=== PATIENT | male | born 1945 | race Caucasian/White ===

== ENCOUNTER 2020-08-16 17:28 | Emergency (ER) | payer MEDICARE, SELFPAY ==
--- NOTE | 2020-08-16 18:37 | ED.MALEGU ---
HPI - Male Genitourinary General Chief complaint: Urogenital-Male Stated complaint: problems with catheter Time Seen by Provider: 08/16/20 18:24 Source: patient Mode of arrival: ambulatory Limitations: no limitations History of Present Illness HPI Narrative: patient comes emergency room complaining of a Allen catheter blockage. Patient states he has had a chronic Allen since December of 2019 for BPH, Patient noticed that he was not passing any urine this morning, patient is then becoming more uncomfortable, was trying to wait until Monday to be seen by his urologist, however patient could not tolerate the abdominal pain any more. Related Data Allergies Allergy/AdvReac Type Severity Reaction Status Date / Time lisinopril [LISINOPRIL] Allergy Unknown UNKNOWN, Unverified 06/18/20 17:31 numbness Review of Systems Review of Systems: Constitutional : No Weight loss, No Fever, No Chills, No Night Sweats, No Fatigue, No Malaise ENT/Mouth : No Hearing loss, No Ear Pain, No Nasal Congestion, No Sinus Pain, No Hoarseness, No sore throat, No Rhinorrhea, No Swallowing Difficulty Eyes: No Eye Pain, No Swelling, No Redness, No Foreign Body, No Discharge, No Vision Changes Cardiovascular : No Chest Pain, No SOB, No Dyspnea on Exertion, No Orthopnea, No Edema, No Palpitations Respiratory : No Cough, No Sputum, No Wheezing, No Smoke Exposure, No Dyspnea Gastrointestinal : No Nausea, No Vomiting, No Diarrhea, No Constipation, Complaining of suprapubic abdominal pain from bladder distention, No Hematochezia, No Melena Genitourinary : patient complaining of blockage in his Allen catheter Musculoskeletal : No joint pain, No Myalgias, No Joint Swelling Skin : No Skin Lesions, No rash Neuro : No Weakness, No Numbness, No Paresthesias, No Loss of Consciousness, No Dizziness, No Headache Psych : No Anxiety/Panic, No Depression, No SI/HI/AH/VH, No Social Issues, Heme/Lymph: No Bruising, No Bleeding,No Lymphadenopathy Endocrine : No Polyuria, No Polydipsia, No Temperature Intolerance PMFSH Past Medical History Medical History (Updated 08/16/20 @ 19:16 by Meghana Mast MD) Asthma BPH (benign prostatic hyperplasia) COPD (chronic obstructive pulmonary disease) HTN (hypertension) MDD (major depressive disorder) Prostate CA Social History Social History Alcohol intake: never Smoking Status: Former smoker Smoked in Last 30 Days: No Use of substances other than those prescribed or required for medical reasons: No Advance Directives: No Advance Directives Information Provided: No Physical Exam Vital Signs: Vital Signs: Last Vital Signs Temp 98.6 F 08/16/20 18:43 Pulse 110 H 08/16/20 18:43 Resp 16 08/16/20 18:43 BP 127/67 08/16/20 18:43 Pulse Ox 97 08/16/20 18:43 Body Mass Index 25.4 Appearance: Alert. Oriented X3. No acute distress. Eyes: Pupils equal, round and reactive to light. ENT: Pharynx normal. Neck: Normal inspection. Neck supple. No lymph nodes noted. No crepitus CVS: Normal heart rate and rhythm. Pulses normal. Normal S1 and S2 Respiratory: No respiratory distress. Breath sounds normal. No Wheezing. No rales Abdomen: distended suprapubic area, palpable bladder, bedside bladder scan shows 622 mL urine : Allen catheter in place, looks dirty, blood clots coming from the urethral meatus Skin: Skin warm and dry. Normal skin color. Normal skin turgor. Extremities: No lower extremity edema. No lower extremity edema. No Lacerations. No Rash Neuro: Oriented X 3. No motor deficit. No sensory deficit. Moving all extermities. No slurred speech. Course Course Course Narrative: patient's Allen catheter was changed, patient drained 800 mL of urine. Patient has an appointment coming up next week On Monday with his urologist. Patient states that he feels much better, no longer having abdominal distention or pain. Of note, patient has been taking ciprofloxacin that he has had from a previous prescription, instructed to continue taking it until he finishes the course since he started. Patient states he ran this by his urologist and agreed that he should finish a course of antibiotics. Discharge Plan Discharge Clinical Impression: Complication, blocked Allen catheter Qualifiers: Encounter type: initial encounter Qualified Code(s): T83.091A - Other mechanical complication of indwelling urethral catheter, initial encounter Patient Disposition: Home, Self-Care Instructions: Allen Catheter Placement and Care (ED) Additional Instructions: please follow-up with your urologist on Monday. If you have any further issues with your Allen catheter, blockage, passing blood clots, please return to emergency room.
[2020-08-16 18:43] VITALS: BP 127/67; PULSE 110; RESP 16; TEMP 37; O2SAT 97; BMI 25.4
== END 2020-08-16 20:14 | disposition home or self-care (01) ==
PROVIDERS: Emergency Provider Emergency Medicine; PCP Family Medicine
DX: T83.098A Other mechanical complication of other urinary catheter, initial encounter (principal); I10 Essential (primary) hypertension; N40.0 Benign prostatic hyperplasia without lower urinary tract symptoms; X58.XXXA Exposure to other specified factors, initial encounter; Z79.899 Other long term (current) drug therapy; Z87.891 Personal history of nicotine dependence
CPT/HCPCS: 99284

== ENCOUNTER 2020-10-16 10:28 | Outpatient (REF) | payer MEDICARE, SELFPAY ==
[2020-10-16 15:01] LABS: Prostate Specific Antigen 12.76 ng/mL (<0.05-4.0)
== END 2020-10-16 10:29 | disposition home or self-care (01) ==
LOC: HO.HMGCLDS 10:28
PROVIDERS: PCP Family Medicine; Visit Provider Urology
DX: C61 Malignant neoplasm of prostate (principal); Z12.5 Encounter for screening for malignant neoplasm of prostate
CPT/HCPCS: 36415; 84153

== ENCOUNTER 2020-11-06 23:02 | Emergency (ER) | payer MEDICARE, SELFPAY ==
[2020-11-07 00:37] VITALS: BP 135/68; PULSE 78; RESP 16; TEMP 36.8; O2SAT 97; BMI 25.0
[2020-11-07 01:13] VITALS: BP 130/56; PULSE 91; RESP 16; TEMP 36.4; O2SAT 95
--- NOTE | 2020-11-07 01:13 | ED.MALEGU ---
HPI - Male Genitourinary General Chief complaint: Urogenital-Male Stated complaint: Blocked catheter Time Seen by Provider: 11/07/20 00:52 Source: patient Mode of arrival: ambulatory Limitations: no limitations History of Present Illness HPI Narrative: Patient history of benign prostatic hypertrophy with indwelling Allen catheter for last 5 months noticed not able to urinate that much today and having the urge to urinate on arrival patient bladder scan showed 218 mL of urine and patient urinated in the ER at this time patient is feeling better patient supposed to get catheter change next week. No fever no chills no blood in the urine Related Data Previous Rx's Medication Instructions Recorded levofloxacin 500 mg PO DAILY 7 Days #7 tab 11/07/20 Allergies Allergy/AdvReac Type Severity Reaction Status Date / Time lisinopril [LISINOPRIL] Allergy Unknown UNKNOWN, Verified 11/07/20 00:59 numbness Review of Systems Review of Systems: Constitutional : No Weight loss, No Fever, No Chills ENT/Mouth : No sore throat, No Rhinorrhea Eyes: No Eye Pain, No Swelling Cardiovascular : No Chest Pain, no palpitations Respiratory : No Cough, No Sputum, no shortness of breath Gastrointestinal : no Nausea, No Vomiting, No Diarrhea, No abdominal Pain, no black stools Genitourinary : + Dysuria, No Urinary Frequency Musculoskeletal : No joint pain, No Myalgias, No Joint Swelling Skin : No Skin Lesions, No rash Neuro : No Weakness, No Numbness, No Dizziness, No Headache Psych : No Anxiety/Panic, No Depression Heme/Lymph: No Bruising, No Lymphadenopathy Endocrine : No Polyuria, No Polydipsia All other systems reviewed and are negative [facility] Past Medical History Medical History Asthma BPH (benign prostatic hyperplasia) COPD (chronic obstructive pulmonary disease) HTN (hypertension) MDD (major depressive disorder) Prostate CA Social History Social History Alcohol intake: never Smoking Status: Never smoker Smoked in Last 30 Days: No Use of substances other than those prescribed or required for medical reasons: No Advance Directives: No Advance Directives Information Provided: No Physical Exam Vital Signs: Vital Signs: Last Vital Signs Temp 97.5 F 11/07/20 01:13 Pulse 91 11/07/20 01:13 Resp 16 11/07/20 01:13 BP 130/56 L 11/07/20 01:13 Pulse Ox 95 11/07/20 01:13 Body Mass Index 25.0 Appearance: Alert. Oriented X3. No acute distress. Eyes: Pupils equal, round and reactive to light. ENT: Pharynx normal. Neck: Normal inspection. Neck supple. CVS: Normal heart rate and rhythm. Pulses normal. Respiratory: No respiratory distress. Breath sounds normal. Abdomen: Soft and nontender. Bowel sounds are present, no mass palpable, no CVA tenderness Allen catheter in place Skin: Skin warm and dry. Normal skin color. Normal skin turgor. Extremities: No lower extremity edema. Neuro: Oriented X 3. No motor deficit. No sensory deficit. Course Course Course Narrative: Allen catheter was placed and about 800 U cc of urine drained patient feeling much better now UA sent for analysis MDM - Male Genitourinary Differential Diagnosis Differential diagnosis: Likely urinary tract infection and acute retention of urine Medical Records Attestation: I reviewed the patient's medical records. Lab Data Attestation: I reviewed the patient's lab results. Labs: Lab Results 11/07/20 Range/Units 01:15 Urine Color YELLOW Urine Appearance CLOUDY Urine pH 6.0 (5.0-8.0) Ur Specific Labolt 1.020 (1.005-1.025) Urine Protein TRACE (NEG-TRACE) MG/DL Urine Glucose (UA) NEG (NEG) MG/DL Urine Ketones NEG (NEG) MG/DL Urine Blood 2+ H (NEG) Urine Nitrite NEG (NEG) Ur Leukocyte Esterase 2+ H (NEG) Urine RBC 0 (0) /HPF Urine WBC TNTC H (0-4) /HPF Ur Squamous Epith Cells NONE /LPF Urine Bacteria 3+ /LPF Discharge Plan Discharge Clinical Impression: Acute retention of urine Urinary tract infection Qualifiers: Urinary tract infection type: catheter-associated UTI Indwelling urinary catheter type: indwelling urethral catheter Encounter type: initial encounter Qualified Code(s): T83.511A - Infection and inflammatory reaction due to indwelling urethral catheter, initial encounter Patient Disposition: Home, Self-Care Instructions: Catheter-associated Urinary Tract Infection (ED) Additional Instructions: Drink plenty of fluids Take antibiotic as prescribed Follow-up with urologist next week Prescriptions: New levofloxacin 500 mg tablet 500 mg PO DAILY 7 Days Qty: 7 RF: 0
[2020-11-07 01:20] LABS: Glucose Urine UA NEG (NEG); Leukocyte Esterase Urine 2+ (NEG); Nitrite Urine NEG (NEG); UACC Culture Trigger YES; Urine Blood 2+ (NEG); Urine Ketones NEG (NEG); Urine Protein TRACE MG/DL (NEG-TRACE)
[2020-11-07 01:21] LABS: Appearance Urine CLOUDY; Color Urine YELLOW
[2020-11-07 01:27] LABS: Bacteria Urine 3+ /LPF; RBC Urine 0 /HPF (0); WBC Urine TNTC /HPF (0-4)
--- NOTE | 2020-11-07 01:50 | PC.NURSE ---
PATIENT SOLARES CATHETER WAS SWITCH TO LEG BAG ,PATIENT HAD 550 ML OUTPUT IN SOLARES BAG BEFORE THE SWITCH WAS MADE .
[2020-11-07] MEDS: levoFLOXacin 500 MG TABLET PO (02:08)
== END 2020-11-07 02:13 | disposition home or self-care (01) ==
PROVIDERS: Emergency Provider Internal Medicine; PCP Family Medicine
DX: N40.0 Benign prostatic hyperplasia without lower urinary tract symptoms (principal); R33.9 Retention of urine, unspecified; T83.9XXA Unspecified complication of genitourinary prosthetic device, implant and graft, initial encounter; I10 Essential (primary) hypertension; Y73.8 Miscellaneous gastroenterology and urology devices associated with adverse incidents, not elsewhere classified; Y92.9 Unspecified place or not applicable; Z79.899 Other long term (current) drug therapy; Z12.5 Encounter for screening for malignant neoplasm of prostate
CPT/HCPCS: 81001; 81003; 87086; 87088; 87186; 99283; 99284

== ENCOUNTER 2020-12-08 10:41 | Outpatient (REF) | payer MEDICARE, SELFPAY ==
[2020-12-08 14:10] LABS: Estimated Average Glucose 126 mg/dL
[2020-12-08 15:01] LABS: Alanine Aminotransferase 31 U/L (0-40); Anion Gap 14 (12-20); Aspartate Amino Transferase 22 U/L (5-37); Blood Urea Nitrogen 17 mg/dL (9-16); Carbon Dioxide 26 mmol/L (22-29); Chloride 106 mmol/L (96-108); Estimated Glomerular Filt Rate > 60; Glucose Fasting 140 mg/dL (60-99); Potassium 4.4 mmol/L (3.3-5.1); Sodium 142 mmol/L (135-145)
[2020-12-08 15:11] LABS: Creatinine Urine 200.73 mg/dL
== END 2020-12-08 10:42 | disposition home or self-care (01) ==
LOC: HO.HMGCLDS 10:41
PROVIDERS: PCP Family Medicine; Visit Provider Family Medicine
DX: I10 Essential (primary) hypertension (principal); E11.9 Type 2 diabetes mellitus without complications; E78.00 Pure hypercholesterolemia, unspecified; Z79.899 Other long term (current) drug therapy
CPT/HCPCS: 36415; 80051; 82043; 82550; 82565; 82947; 83036; 84450; 84460; 84520

== ENCOUNTER 2021-07-16 10:20 | Outpatient (REF) | payer MEDICARE, SELFPAY ==
[2021-07-16 12:10] LABS: Anion Gap 13 (12-20); Blood Urea Nitrogen 11 mg/dL (9-16); Carbon Dioxide 25 mmol/L (22-29); Chloride 105 mmol/L (96-108); Estimated Glomerular Filt Rate > 60; Glucose Fasting 129 mg/dL (60-99); Potassium 4.1 mmol/L (3.3-5.1); Sodium 139 mmol/L (135-145)
[2021-07-16 12:18] LABS: Estimated Average Glucose 131 mg/dL; Hemoglobin A1c % 6.2 %
[2021-07-16 16:57] LABS: Creatinine Urine 108.99 mg/dL; Microalbum/Creatinine Ratio Ur 75.2 ug/mg cr
== END 2021-07-16 10:21 | disposition home or self-care (01) ==
LOC: HO.HMGCLDS 10:20
PROVIDERS: PCP Family Medicine; Visit Provider Family Medicine
DX: I10 Essential (primary) hypertension (principal); E11.9 Type 2 diabetes mellitus without complications; E78.00 Pure hypercholesterolemia, unspecified
CPT/HCPCS: 36415; 80051; 82043; 82565; 82947; 83036; 84520

== ENCOUNTER → 2021-07-30 13:24 | Outpatient (REF) | payer MEDICARE, SELFPAY ==
--- NOTE | 2021-07-30 13:32 | ECG_ITS ---
Test Reason : prostate ca Blood Pressure : / mmHG Vent. Rate : 065 BPM Atrial Rate : 065 BPM P-R Int : 152 ms QRS Dur : 086 ms QT Int : 392 ms P-R-T Axes : 080 080 073 degrees QTc Int : 407 ms Normal sinus rhythm Normal ECG When compared with ECG of 11-APR-2019 10:06, No significant change was found Referred By: Jensen Manning Electronically Signed By:DELISA DELUNA MD
[2021-07-30 13:43] LABS: MANUAL DIFF FLAG NO
[2021-07-30 14:00] LABS: Basophils Percent Auto 0.3 % (0-2); Eosinophils Absolute Auto 0.2 X10*3/uL (0.0-0.4); Eosinophils Percent Auto 2.3 % (0-4); Hematocrit 43.4 % (42-52); Hemoglobin 14.2 g/dl (14.0-18.0); Imm Gran Abs Auto 0.05 X10*3/uL (0.00-0.03); Imm Gran Pct Auto 0.7 % (0.0-0.4); Lymphocytes Absolute Auto 1.6 X10*3/uL (1.2-4.9); Lymphocytes Percent Auto 22.9 % (20-40); Mean Corpuscular HGB Conc 32.7 g/dl (31.0-36.0); Mean Corpuscular Hemoglobin 30.5 pg (27.0-33.0); Mean Corpuscular Volume 93.3 fL (80-98); Mean Platelet Volume 9.5 fL (9.4-12.4); Monocytes Absolute Auto 0.9 X10*3/uL (0.1-1.2); Monocytes Percent Auto 12.5 % (2-11); Neutrophils Absolute Auto 4.3 X10*3/uL (2.0-8.3); Neutrophils Percent Auto 61.3 % (45-73); Platelet Count 276 X10*3/uL (160-400); Red Blood Count 4.65 X10*6/uL (4.60-5.80); Red Cell Distribution Width 12.9 % (11.0-16.0)
[2021-07-30 14:35] LABS: Anion Gap 14 (12-20); Blood Urea Nitrogen 10 mg/dL (9-16); Calcium 9.3 mg/dL (8.4-10.2); Carbon Dioxide 26 mmol/L (22-29); Chloride 102 mmol/L (96-108); Estimated Glomerular Filt Rate > 60; Glucose Random 200 mg/dL (60-115); Potassium 4.5 mmol/L (3.3-5.1); Sodium 137 mmol/L (135-145)
== END ==
LOC: HO.CARD 13:24
PROVIDERS: PCP Family Medicine; Visit Provider Family Medicine
DX: Z01.818 Encounter for other preprocedural examination (principal); C61 Malignant neoplasm of prostate
CPT/HCPCS: 36415; 80048; 85025; 93005

== ENCOUNTER 2021-08-02 16:30 | Outpatient (REF) | payer MEDICARE, SELFPAY ==
[2021-08-02 17:27] LABS: Appearance Urine CLOUDY; Color Urine YELLOW; Glucose Urine UA NEG (NEG); Leukocyte Esterase Urine 3+ (NEG); Nitrite Urine POS (NEG); Specific Gravity - Urine <= 1.005 (1.005-1.025); Urine Blood 1+ (NEG); Urine Ketones NEG (NEG); Urine Protein NEG (NEG-TRACE)
[2021-08-02 17:46] LABS: Amorphous Sediment Urine TRACE /LPF; Bacteria Urine 1+ /LPF; Mucus Urine 1+ /LPF; RBC Urine 0-2 /HPF (0); Renal Epithelial Cells Urine TRACE /LPF; Squamous Epithelial Cell Urine 1+ /LPF
== END 2021-08-02 16:31 | disposition home or self-care (01) ==
LOC: HO.LAB 16:30
PROVIDERS: PCP Family Medicine; Visit Provider Family Medicine
DX: R33.9 Retention of urine, unspecified (principal)
CPT/HCPCS: 81001; 87086; 87088; 87186

== ENCOUNTER 2021-12-15 13:43 | Outpatient (REF) | payer MEDICARE, SELFPAY ==
[2021-12-15 15:05] LABS: COVID-19 Test Negative (Negative)
== END 2021-12-15 13:44 | disposition home or self-care (01) ==
LOC: HO.LAB 13:43
PROVIDERS: Visit Provider Internal Medicine
DX: Z20.822 Contact with and (suspected) exposure to COVID-19 (principal)
CPT/HCPCS: 87635; C9803

== ENCOUNTER 2021-12-16 11:38 | Outpatient (REF) | payer MEDICARE, SELFPAY ==
[2021-12-16 14:14] LABS: Appearance Urine CLOUDY; Color Urine RED; Glucose Urine UA NEG (NEG); Leukocyte Esterase Urine 3+ (NEG); Nitrite Urine NEG (NEG); UACC Culture Trigger YES; Urine Blood 2+ (NEG); Urine Ketones NEG (NEG); Urine Protein 2+ MG/DL (NEG-TRACE)
[2021-12-16 14:38] LABS: Bacteria Urine 2+ /LPF; WBC Urine TNTC /HPF (0-4)
== END 2021-12-16 11:39 | disposition home or self-care (01) ==
LOC: HO.HMGCLDS 11:38
PROVIDERS: Visit Provider Family Medicine
DX: N39.0 Urinary tract infection, site not specified (principal)
CPT/HCPCS: 81001; 81003; 87086; 87088; 87186

== ENCOUNTER 2021-12-28 15:32 | Outpatient (REF) | payer MEDICARE, SELFPAY ==
--- NOTE | ~2021-12-28 | US_ITS ---
EXAMINATION: US RETROPERITONEAL COMPLETE (RENAL) CLINICAL INFORMATION: UTI, status post TURP. COMPARISON: None. TECHNIQUE: Real-time imaging of the kidneys and bladder. FINDINGS: RIGHT KIDNEY: 12.1 x 4.5 x 5.5 cm (SAG x AP x TRV). The kidney is normal in size, contour, and echogenicity. Renal cortical thickness is normal. No calculi or focal parenchymal lesions. No hydronephrosis. A prominent column of Manan seen. Focal dilated calyx is noted. No obstructive etiology noted. LEFT KIDNEY: 10.9 x 4.9 x 5.0 cm (SAG x AP x TRV). The kidney is normal in size, contour, and echogenicity. Renal cortical thickness is normal. No calculi or focal parenchymal lesions. No hydronephrosis. BLADDER: Well distended and normal. Bilateral ureteral jets are demonstrated. Prevoid bladder volume is 122 mL. Postvoid bladder volume is 84.4 mL. There are multiple bladder diverticula seen with 2 diverticula on the left, prevoid, measuring 4.1 x 2.9 x 3.7 and 1.3 x 1.0 x 0. A right bladder diverticulum, prevoid, measures 2.1 x 0.75 x 1.1cm. Postvoid, the bladder diverticula are essentially unchanged in size. ADDITIONAL FINDINGS: Prostate is mildly enlarged measuring 32.4 mL. US/US retroperitoneal comp IMPRESSION: Prominent column of Manan right kidney. Focal caliectasis with no known etiology. Left kidney is unremarkable. At least 3 bladder diverticula are seen which are unchanged on prevoid and postvoid images.
== END 2021-12-28 15:33 | disposition home or self-care (01) ==
LOC: HO.HMGCX 15:32
PROVIDERS: Absent Provider Urology; PCP Family Medicine; Visit Provider Family Medicine
DX: N31.0 Uninhibited neuropathic bladder, not elsewhere classified (principal); N39.0 Urinary tract infection, site not specified; Z48.816 Encounter for surgical aftercare following surgery on the genitourinary system
CPT/HCPCS: 76770

== ENCOUNTER 2021-12-31 13:39 | Outpatient (REF) | payer MEDICARE, SELFPAY | END 2021-12-31 13:40 | disposition home or self-care (01) | LOC: HO.HMGCLDS 13:39 | PROVIDERS: Visit Provider Family Medicine | DX: N39.0 Urinary tract infection, site not specified (principal) | CPT/HCPCS: 87086 ==

== ENCOUNTER 2022-01-04 13:45 | Outpatient (REF) | payer MEDICARE, SELFPAY ==
[2022-01-04 16:29] LABS: MANUAL DIFF FLAG NO
[2022-01-04 16:34] LABS: Basophils Percent Auto 0.4 % (0-2); Eosinophils Absolute Auto 0.1 X10*3/uL (0.0-0.4); Eosinophils Percent Auto 0.9 % (0-4); Hematocrit 42.9 % (42.0-52.0); Hemoglobin 14.2 g/dl (14.0-18.0); Imm Gran Abs Auto 0.05 X10*3/uL (0.00-0.03); Imm Gran Pct Auto 0.5 % (0.0-0.4); Lymphocytes Absolute Auto 1.6 X10*3/uL (1.2-4.9); Lymphocytes Percent Auto 15.9 % (20-40); Mean Corpuscular HGB Conc 33.1 g/dl (31.0-36.0); Mean Corpuscular Hemoglobin 30.8 pg (27.0-33.0); Mean Corpuscular Volume 93.1 fL (80.0-98.0); Mean Platelet Volume 9.7 fL (9.4-12.4); Monocytes Absolute Auto 0.7 X10*3/uL (0.1-1.2); Monocytes Percent Auto 6.6 % (2-11); Neutrophils Absolute Auto 7.4 x10*3/uL (2.0-8.3); Neutrophils Percent Auto 75.7 % (45-73); Platelet Count 298 X10*3/uL (160-400); Red Blood Count 4.61 X10*6/uL (4.60-5.80); Red Cell Distribution Width 13.2 % (11.0-16.0); White Blood Count 9.8 X10*3/uL (4.8-10.8)
[2022-01-04 16:48] LABS: Alanine Aminotransferase 25 U/L (0-40); Albumin Level 4.1 g/dL (3.5-5.0); Alkaline Phosphatase 55 U/L (39-117); Anion Gap 15 (12-20); Aspartate Amino Transferase 20 U/L (5-37); Bilirubin Total 0.6 mg/dL (0.0-1.0); Blood Urea Nitrogen 15 mg/dL (9-16); Calcium 9.5 mg/dL (8.4-10.2); Carbon Dioxide 27 mmol/L (22-29); Chloride 101 mmol/L (96-108); Estimated Glomerular Filt Rate > 60; Glucose Random 147 mg/dL (60-115); Potassium 4.8 mmol/L (3.3-5.1); Sodium 138 mmol/L (135-145); Total Protein 6.7 g/dL (6.5-8.0)
[2022-01-04 17:12] LABS: Erythrocyte Sedimentation Rate 7 MM/HR (0-15)
== END 2022-01-04 13:46 | disposition home or self-care (01) ==
LOC: HO.HMGCLDS 13:45
PROVIDERS: Visit Provider Family Medicine
DX: E11.9 Type 2 diabetes mellitus without complications (principal); I10 Essential (primary) hypertension; C61 Malignant neoplasm of prostate
CPT/HCPCS: 36415; 80053; 82550; 85025; 85652

== ENCOUNTER 2022-01-20 08:44 | Outpatient (REF) | payer MEDICARE, SELFPAY ==
[2022-01-20 11:11] LABS: MANUAL DIFF FLAG NO
[2022-01-20 11:23] LABS: Basophils Percent Auto 0.3 % (0-2); Eosinophils Absolute Auto 0.1 X10*3/uL (0.0-0.4); Eosinophils Percent Auto 1.4 % (0-4); Hematocrit 43.4 % (42.0-52.0); Hemoglobin 14.4 g/dl (14.0-18.0); Imm Gran Abs Auto 0.04 X10*3/uL (0.00-0.03); Imm Gran Pct Auto 0.4 % (0.0-0.4); Lymphocytes Absolute Auto 1.6 X10*3/uL (1.2-4.9); Lymphocytes Percent Auto 16.7 % (20-40); Mean Corpuscular HGB Conc 33.2 g/dl (31.0-36.0); Mean Corpuscular Volume 93.5 fL (80.0-98.0); Mean Platelet Volume 10.3 fL (9.4-12.4); Monocytes Absolute Auto 0.8 X10*3/uL (0.1-1.2); Monocytes Percent Auto 8.7 % (2-11); Neutrophils Absolute Auto 6.9 x10*3/uL (2.0-8.3); Neutrophils Percent Auto 72.5 % (45-73); Platelet Count 261 X10*3/uL (160-400); Red Blood Count 4.64 X10*6/uL (4.60-5.80); Red Cell Distribution Width 13.4 % (11.0-16.0); White Blood Count 9.5 X10*3/uL (4.8-10.8)
[2022-01-20 11:31] LABS: Anion Gap 12 (12-20); Carbon Dioxide 25 mmol/L (22-29); Chloride 104 mmol/L (96-108); Estimated Glomerular Filt Rate > 60; Glucose Fasting 172 mg/dL (60-99); Potassium 4.1 mmol/L (3.3-5.1); Sodium 137 mmol/L (135-145)
[2022-01-20 11:54] LABS: Estimated Average Glucose 131 mg/dL; Hemoglobin A1c % 6.2 %
== END 2022-01-20 08:45 | disposition home or self-care (01) ==
LOC: HO.HMGCLDS 08:44
PROVIDERS: PCP Family Medicine; Visit Provider Family Medicine
DX: I10 Essential (primary) hypertension (principal); E11.9 Type 2 diabetes mellitus without complications; R53.1 Weakness
CPT/HCPCS: 36415; 80051; 82565; 82947; 83036; 85025

== ENCOUNTER 2022-01-25 14:57 | Outpatient (REF) | payer MEDICARE, SELFPAY ==
[2022-01-25 18:01] LABS: Ferritin 157 ng/mL (20-250); Free T4 (Free Thyroxine) 1.12 ng/dL (0.71-1.85)
[2022-01-25 18:10] LABS: Vitamin B12 480 pg/mL (200-900)
[2022-01-27 10:47] LABS: Carbohydrate Antigen 19-9 14 U/mL (<34)
== END 2022-01-25 14:58 | disposition home or self-care (01) ==
LOC: HO.HMGCLDS 14:57
PROVIDERS: PCP Family Medicine; Visit Provider Family Medicine
DX: R63.4 Abnormal weight loss (principal); R53.1 Weakness
CPT/HCPCS: 36415; 82378; 82607; 82728; 84439; 86301

== ENCOUNTER 2022-02-02 11:31 | Outpatient (REF) | payer MEDICARE, SELFPAY ==
[2022-02-02 13:49] LABS: Appearance Urine CLEAR; Color Urine YELLOW; Glucose Urine UA NEG (NEG); Leukocyte Esterase Urine TRACE (NEG); Nitrite Urine NEG (NEG); UACC Culture Trigger NO; Urine Blood TRACE (NEG); Urine Ketones NEG (NEG); Urine Protein NEG (NEG-TRACE)
[2022-02-02 14:00] LABS: UACC CULT YES
[2022-02-02 14:01] LABS: Bacteria Urine TRACE /LPF; RBC Urine 0-2 /HPF (0)
[2022-02-02 14:42] LABS: Free T4 (Free Thyroxine) 1.04 ng/dL (0.71-1.85); Thyroid Stimulating Hormone 1.64 uIU/mL (0.32-4.0)
== END 2022-02-02 11:32 | disposition home or self-care (01) ==
LOC: HO.HMGCLDS 11:31
PROVIDERS: Visit Provider Family Medicine
DX: R30.0 Dysuria (principal); R53.1 Weakness
CPT/HCPCS: 36415; 81001; 82550; 84439; 84443; 87086

== ENCOUNTER 2022-02-19 18:36 | Emergency (ER) | payer MEDICARE, SELFPAY ==
--- NOTE | ~2022-02-19 | CT_ITS ---
EXAMINATION: CT CERVICAL SPINE WITHOUT CONTRAST CLINICAL INFORMATION: Fall COMPARISON: Cervical spine x-ray September 2015 TECHNIQUE: Axial images through the cervical spine without contrast. Sagittal and coronal re-instructions on the technologist workstation were performed. This CT examination was performed using dose optimization techniques as appropriate, variously including the following: *Automated exposure control *Adjustment of mA and/or kV according to patient size (this includes techniques or standardized protocols for targeted exams where dose is matched to indication/reason for exam; i.e. extremities or head) *Use of iterative reconstruction technique DLP: 492 mGy-cm FINDINGS: There is a 3 mm anterior subluxation of C3 with respect to C4, 4 mm subluxation of C4 with respect to C5 and 4 mm anterior subluxation of C7 with T1. Bone alignment is otherwise normal. No fracture or dislocation is seen. There is multilevel degenerative spondylosis and degenerative disc disease. This is greatest at C4-C5 C5-C6 C6-C7 and C7 T1. There is bilateral facet arthritis. There are degenerative changes at the C1 dens articulation. There are cystic changes seen in the dens. Prevertebral soft tissues are normal. The visualized lung apices are clear. CT/CT cervical spine wo con IMPRESSION: Degenerative changes. No fracture or dislocation seen. Fleischner guidelines were followed.
--- NOTE | ~2022-02-19 | CT_ITS ---
EXAMINATION: CT HEAD WITHOUT CONTRAST CLINICAL INFORMATION: Fall COMPARISON: Previous head CT December 2021 TECHNIQUE: Contiguous axial imaging was performed from the skull base to vertex without intravenous administration of contrast. This CT examination was performed using dose optimization techniques as appropriate, variously including the following: *Automated exposure control *Adjustment of mA and/or kV according to patient size (this includes techniques or standardized protocols for targeted exams where dose is matched to indication/reason for exam; i.e. extremities or head) *Use of iterative reconstruction technique DLP: 7 7 5 mGy-cm FINDINGS: There is no evidence of an extra-axial collection. There is no evidence of intra-axial or extra-axial hemorrhage. The ventricles and extra-axial CSF spaces are prominent suggestive of generalized atrophy. There is nonspecific periventricular white matter disease. There is no mass, mass effect or infarct. Review at bone windows is normal. No skull fracture is seen. Visualized paranasal sinuses, mastoid air cells and middle ears are clear. CT/CT head/brain wo con IMPRESSION: No acute findings. Mild generalized atrophy and nonspecific periventricular white matter disease similar to previous exam.
[2022-02-19 18:50] VITALS: BP 145/66; PULSE 90; RESP 19; TEMP 36.8; O2SAT 98; BMI 26.2
--- NOTE | 2022-02-19 18:50 | ED.FALL ---
HPI - Fall General Chief Complaint: Fall Stated Complaint: fall Time Seen by Provider: 02/19/22 18:48 Source: patient Mode of arrival: EMS Limitations: no limitations History of Present Illness HPI Narrative: patient wit hx of Parkinson disease came here by EMS for the mechanical fall said his leg was feeling weak had a few drinks earlier today, says that he slumped down without any significant injury, also denies any head injury or neck pain patient with strong urine smell and unkept condition Related Data Previous Rx's Medication Instructions Recorded levofloxacin 500 mg tablet 500 mg PO DAILY 7 Days #7 tab 11/07/20 Allergies Allergy/AdvReac Type Severity Reaction Status Date / Time lisinopril [LISINOPRIL] Allergy Unknown UNKNOWN, Verified 02/19/22 19:03 numbness Review of Systems Review of Systems: Yes all other systems are reviewed and are negative PMFSH Past Medical History Medical History Asthma BPH (benign prostatic hyperplasia) COPD (chronic obstructive pulmonary disease) HTN (hypertension) MDD (major depressive disorder) Prostate CA Social History Social History Alcohol intake: never Advance Directives: No Advance Directives Information Provided: No Physical Exam Vital Signs: Vital Signs: Last Vital Signs Temp 98.2 F 02/19/22 18:50 Pulse 90 02/19/22 18:50 Resp 19 02/19/22 18:50 BP 145/66 H 02/19/22 18:50 Pulse Ox 98 02/19/22 18:50 BMI result Body Mass Index 26.2 Appearance: Alert. Oriented X3. No acute distress. unkept condition Eyes: PERRLA, No Nystagmus ENT: Pharynx normal. Oral Mucosa moist Neck: Normal inspection. Neck supple. no midline tenderness in cervical collar CVS: Normal heart rate and rhythm. Pulses normal. Respiratory: No respiratory distress. Equal air entry bilateral, no wheezing/rales/rhonchi Abdomen: Soft and nontender. Bowel sounds are present, no mass palpable, no CVA tenderness Skin: Skin warm and dry. Normal skin color. Normal skin turgor. Extremities: No lower extremity edema. No calf tenderness Neuro: Oriented X 3. No motor deficit. 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 Result diagrams: 02/19/22 19:37 02/19/22 19:37 Labs: Lab Results 02/19/22 02/19/22 02/19/22 Range/Units 19:37 19:37 19:37 WBC 7.9 (4.8-10.8) X10*3/uL RBC 4.53 L (4.60-5.80) X10*6/uL Hgb 14.1 (14.0-18.0) g/dl Hct 41.3 L (42.0-52.0) % MCV 91.2 (80.0-98.0) fL MCH 31.1 (27.0-33.0) pg MCHC 34.1 (31.0-36.0) g/dl RDW 13.3 (11.0-16.0) % Plt Count 260 (160-400) X10*3/uL MPV 9.3 L (9.4-12.4) fL Immature Gran % (Auto) 0.4 (0.0-0.4) % Neut % (Auto) 71.4 (45-73) % Lymph % (Auto) 19.8 L (20-40) % [place] % (Auto) 7.1 (2-11) % Eos % (Auto) 0.9 (0-4) % Baso % (Auto) 0.4 (0-2) % Lymph # (Auto) 1.6 (1.2-4.9) X10*3/uL [place] # (Auto) 0.6 (0.1-1.2) X10*3/uL Eos # (Auto) 0.1 (0.0-0.4) X10*3/uL Baso # (Auto) 0.0 (0.0-0.2) X10*3/uL Abs Immat Gran (auto) 0.03 (0.00-0.03) X10*3/uL Absolute Neuts (auto) 5.7 (2.0-8.3) x10*3/uL Absolute Nucleated RBC 0.000 (0.0-0.012) X10*3/uL Nucleated RBC % (auto) 0.0 (0.0-0.2) /100WBC Sodium 139 (135-145) mmol/L Potassium 4.0 (3.3-5.1) mmol/L Chloride 107 (96-108) mmol/L Carbon Dioxide 22 (22-29) mmol/L Anion Gap 14 (12-20) BUN 12 (9-16) mg/dL Creatinine 0.75 (0.5-1.4) mg/dL Estim Creat Clear Calc 75.8 Estimated GFR > 60 Random Glucose 91 D (60-115) mg/dL Calcium 8.8 D (8.4-10.2) mg/dL Total Bilirubin 0.3 (0.0-1.0) mg/dL AST 19 (5-37) U/L ALT 22 (0-40) U/L Alkaline Phosphatase 51 (39-117) U/L Total Protein 6.4 L (6.5-8.0) g/dL Albumin 4.0 (3.5-5.0) g/dL Ethyl Alcohol mg/dL COVID-19 ([place]) Negative (Negative) COVID-19 Clin Com See Note 02/19/22 Range/Units 19:37 WBC (4.8-10.8) X10*3/uL RBC (4.60-5.80) X10*6/uL Hgb (14.0-18.0) g/dl Hct (42.0-52.0) % MCV (80.0-98.0) fL MCH (27.0-33.0) pg MCHC (31.0-36.0) g/dl RDW (11.0-16.0) % Plt Count (160-400) X10*3/uL MPV (9.4-12.4) fL Immature Gran % (Auto) (0.0-0.4) % Neut % (Auto) (45-73) % Lymph % (Auto) (20-40) % [place] % (Auto) (2-11) % Eos % (Auto) (0-4) % Baso % (Auto) (0-2) % Lymph # (Auto) (1.2-4.9) X10*3/uL [place] # (Auto) (0.1-1.2) X10*3/uL Eos # (Auto) (0.0-0.4) X10*3/uL Baso # (Auto) (0.0-0.2) X10*3/uL Abs Immat Gran (auto) (0.00-0.03) X10*3/uL Absolute Neuts (auto) (2.0-8.3) x10*3/uL Absolute Nucleated RBC (0.0-0.012) X10*3/uL Nucleated RBC % (auto) (0.0-0.2) /100WBC Sodium (135-145) mmol/L Potassium (3.3-5.1) mmol/L Chloride (96-108) mmol/L Carbon Dioxide (22-29) mmol/L Anion Gap (12-20) BUN (9-16) mg/dL Creatinine (0.5-1.4) mg/dL Estim Creat Clear Calc Estimated GFR Random Glucose (60-115) mg/dL Calcium (8.4-10.2) mg/dL Total Bilirubin (0.0-1.0) mg/dL AST (5-37) U/L ALT (0-40) U/L Alkaline Phosphatase (39-117) U/L Total Protein (6.5-8.0) g/dL Albumin (3.5-5.0) g/dL Ethyl Alcohol 175 mg/dL COVID-19 ([place]) (Negative) COVID-19 Clin Com Discharge Plan Discharge Clinical Impression: Fall Patient Disposition: Home, Self-Care Instructions: Fall Prevention (ED) Additional Instructions: care and cautions as advised follow-up with your neurologist /PCP Prescriptions: No Action levofloxacin 500 mg tablet 500 mg PO DAILY 7 Days Qty: 7 0RF Discharge Date/Time: 02/19/22 21:04
[2022-02-19 19:44] LABS: MANUAL DIFF FLAG NO
[2022-02-19 19:46] LABS: Basophils Percent Auto 0.4 % (0-2); Eosinophils Absolute Auto 0.1 X10*3/uL (0.0-0.4); Eosinophils Percent Auto 0.9 % (0-4); Hematocrit 41.3 % (42.0-52.0); Hemoglobin 14.1 g/dl (14.0-18.0); Imm Gran Abs Auto 0.03 X10*3/uL (0.00-0.03); Imm Gran Pct Auto 0.4 % (0.0-0.4); Lymphocytes Absolute Auto 1.6 X10*3/uL (1.2-4.9); Lymphocytes Percent Auto 19.8 % (20-40); Mean Corpuscular HGB Conc 34.1 g/dl (31.0-36.0); Mean Corpuscular Hemoglobin 31.1 pg (27.0-33.0); Mean Corpuscular Volume 91.2 fL (80.0-98.0); Mean Platelet Volume 9.3 fL (9.4-12.4); Monocytes Absolute Auto 0.6 X10*3/uL (0.1-1.2); Monocytes Percent Auto 7.1 % (2-11); Neutrophils Absolute Auto 5.7 x10*3/uL (2.0-8.3); Neutrophils Percent Auto 71.4 % (45-73); Platelet Count 260 X10*3/uL (160-400); Red Blood Count 4.53 X10*6/uL (4.60-5.80); Red Cell Distribution Width 13.3 % (11.0-16.0); White Blood Count 7.9 X10*3/uL (4.8-10.8)
[2022-02-19 20:01] LABS: Ethanol 175 mg/dL
[2022-02-19 20:02] LABS: Alanine Aminotransferase 22 U/L (0-40); Alkaline Phosphatase 51 U/L (39-117); Anion Gap 14 (12-20); Aspartate Amino Transferase 19 U/L (5-37); Bilirubin Total 0.3 mg/dL (0.0-1.0); Blood Urea Nitrogen 12 mg/dL (9-16); COVID-19 Test Negative (Negative); Calcium 8.8 mg/dL (8.4-10.2); Carbon Dioxide 22 mmol/L (22-29); Chloride 107 mmol/L (96-108); Creatinine Clr Calc Pharmacy 75.8; Estimated Glomerular Filt Rate > 60; Glucose Random 91 mg/dL (60-115); IDNOW Serial# 55D5AD1C; Sodium 139 mmol/L (135-145); Total Protein 6.4 g/dL (6.5-8.0)
== END 2022-02-19 21:04 | disposition home or self-care (01) ==
PROVIDERS: Emergency Provider Internal Medicine
DX: S89.91XA Unspecified injury of right lower leg, initial encounter (principal); S09.90XA Unspecified injury of head, initial encounter; F10.129 Alcohol abuse with intoxication, unspecified; M54.2 Cervicalgia; Y90.6 Blood alcohol level of 120-199 mg/100 ml; W01.0XXA Fall on same level from slipping, tripping and stumbling without subsequent striking against object, initial encounter; Y93.9 Activity, unspecified; Y92.9 Unspecified place or not applicable; Y99.9 Unspecified external cause status; Z20.822 Contact with and (suspected) exposure to COVID-19; Z79.899 Other long term (current) drug therapy
CPT/HCPCS: 36415; 70450; 72125; 80053; 82077; 85025; 87635; 99284

== ENCOUNTER 2022-03-01 14:22 | Outpatient (REF) | payer MEDICARE, SELFPAY ==
[2022-03-01 21:40] LABS: Prostate Specific Antigen 6.18 ng/mL (<0.05-4.0)
== END 2022-03-01 14:23 | disposition home or self-care (01) ==
LOC: HO.HMGCLDS 14:22
PROVIDERS: PCP Family Medicine; Visit Provider Urology
DX: Z12.5 Encounter for screening for malignant neoplasm of prostate (principal); C61 Malignant neoplasm of prostate
CPT/HCPCS: 36415; 84153

== ENCOUNTER 2022-03-16 14:24 | Outpatient (REF) | payer MEDICARE, SELFPAY ==
--- NOTE | ~2022-03-16 | US_ITS ---
EXAMINATION: US EXTRACRANIAL CAROTID DUPLEX, BILATERAL CLINICAL INFORMATION: Carotid bruit. COMPARISON: None TECHNIQUE: Real-time ultrasound and Doppler techniques (integrating B-mode 2-D vascular images, Doppler spectral analysis and color-flow Doppler imaging) were utilized to interrogate the extracranial carotid arteries, the vertebral arteries and proximal subclavian arteries bilaterally. The degree of stenosis is determined by criteria similar to NASCET. FINDINGS: Right Side: 1. There is hard shadowing atherosclerotic plaque seen in the bifurcation/proximal ICA region. 2. The common carotid artery PSV proximally is 107 cm/s and distally 89 cm/s. 3. The proximal internal carotid artery velocities are 248 cm/s systolic and 41 cm/s diastolic. 4. The proximal external carotid artery PSV is 337 cm/s. 5. The vertebral artery shows antegrade flow. 6. The subclavian artery waveforms are normal. Left Side: 1. There is hard atherosclerotic plaque seen in the bifurcation/proximal ICA region. 2. The common carotid artery PSV proximally is 156 cm/s and distally 112 cm/s. 3. The proximal internal carotid artery velocities are 111 cm/s systolic and 26 cm/s diastolic. 4. The proximal external carotid artery PSV is 95 cm/s. 5. The vertebral artery shows 54 flow. 6. The subclavian artery waveforms are normal. US/US carotid duplex BI IMPRESSION: 1. RIGHT: Severe 50-79% range stenosis. 2. LEFT: 0-49% range stenosis. 3. Normal antegrade flow seen in both vertebral arteries.
== END 2022-03-16 14:25 | disposition home or self-care (01) ==
LOC: HO.HMGCX 14:24
PROVIDERS: Visit Provider Family Medicine
DX: R09.89 Other specified symptoms and signs involving the circulatory and respiratory systems (principal)
CPT/HCPCS: 93880

== ENCOUNTER → 2022-04-11 14:47 | Outpatient (BNVA) | payer MEDICARE, SELFPAY | PROVIDERS: PCP Family Medicine; Visit Provider Psychiatry & Neurology Neurology | DX: R26.9 Unspecified abnormalities of gait and mobility (principal); M54.9 Dorsalgia, unspecified | CPT/HCPCS: 99202 ==

== ENCOUNTER 2022-04-26 14:16 | Outpatient (REF) | payer MEDICARE, SELFPAY ==
--- NOTE | ~2022-04-26 | MR_ITS ---
EXAMINATION: MR LUMBAR SPINE WITHOUT CONTRAST CLINICAL INFORMATION: Unspecified abnormality of gait immobility. Patient reports low back pain, right leg pain. Patient reports fall October 2021. COMPARISON: X-ray lumbar spine 04/10/2013. TECHNIQUE: MRI of the lumbar spine was obtained using routine sequences without contrast. FINDINGS: VERTEBRAL BODIES AND PARASPINAL STRUCTURES: Five [id number] lumbar vertebral bodies. Mild dextroconvex curvature of the lumbar spine. Grade 1 anterolisthesis of L5 on S1. Multilevel degenerative disc disease with mixed Modic I and II endplate changes, with the more prominent findings of severe disc degeneration at L2-L3, L4-L5. There is curvilinear T2 bright signal along the superior aspect of the L4 vertebral body on the right side, raising the possibility of a fracture, which could be acute or subacute (image 4:10-11). Limited visualization of the retroperitoneal structures, without suspicious abnormality seen. Paraspinal musculature appears unremarkable. CONUS MEDULLARIS AND CAUDA EQUINA: Normal, terminating at the level of L2. SPINAL LEVELS: T10-T11: Mild disc degeneration. T11-T12: Mild disc degeneration. T12-L1: No significant disc bulge. No central canal or foramen stenosis. L1-L2: Disc desiccation. Mild broad-based posterior disc bulge. Mild bilateral facet degeneration. No central canal stenosis. Mild bilateral neural foramen narrowing. L2-L3: Severe degenerative disc disease, with disc height loss, osteophytes. There is a circumferential prominent disc osteophyte complex. Moderate-sized broad-based posterior disc osteophyte complex/bulge. This appears to abut the traversing left-sided nerves at the level of the disc space. [id number]-ei-[id number] central canal narrowing. Bilateral facet arthropathy. Mild right neural foramen narrowing. Pevebkuu-ay-bkadut left foramen narrowing. L3-L4: Moderate degenerative disc disease. Broad-based posterior disc osteophyte complex. Bilateral facet arthropathy. Ligamentum flavum hypertrophy. Findings result in [id number]-[id number]-[id number] central canal stenosis, narrowing of bilateral lateral recesses. Severe bilateral neural foramen narrowing. L4-L5: Severe degenerative disc disease. Broad-based posterior disc osteophyte complex with superimposed left paracentral/foraminal disc protrusion. Severe bilateral facet arthropathy. Ligamentum flavum hypertrophy. There is severe central canal stenosis. Severe bilateral neural foramen narrowing, impingement on the exiting nerve roots. L5-S1: Mild degenerative disc disease. Mild anterolisthesis of L5, resulting in unroofing of the disc, broad-based posterior disc bulge. Severe bilateral facet arthropathy. Ligamentum flavum hypertrophy. Findings result in severe central canal stenosis, severe bilateral neural foramen stenosis, with impingement on the exiting nerves. MR/MR lumbar spine wo con IMPRESSION: -There is curvilinear bright signal in the superior aspect of L4 vertebral body on the right-sided, raising concern for a fracture, which could be acute or subacute. -At L3-L4, moderate degenerative disc disease, broad-based posterior osteophyte disc complex. Additional multifactorial findings, detailed above. There is [id number]-[id number] central canal stenosis. Severe bilateral neural foramen narrowing. -At L4-L5, severe disc degeneration, with multiple factors including a broad-based posterior disc osteophyte complex and left paracentral/foraminal disc protrusion resulting in severe central canal stenosis, severe bilateral neural foramen narrowing and impingement of the exiting nerve roots. -At L5-S1, grade 1 anterolisthesis of L5, multifactorial findings resulting in severe central canal stenosis, severe bilateral neural foramen stenosis and exiting nerve impingement. -Multilevel spondylosis of the lumbosacral spine with varying degrees of central canal and foraminal stenosis, as detailed above by level. The report will be called to the ordering clinician by a Secretary Radiology Physician Political [employer] Chair.
== END 2022-04-26 14:17 | disposition home or self-care (01) ==
LOC: HO.MRI 14:16
PROVIDERS: Visit Provider Psychiatry & Neurology Neurology
DX: M54.9 Dorsalgia, unspecified (principal); R26.9 Unspecified abnormalities of gait and mobility
CPT/HCPCS: 72148

== ENCOUNTER 2022-06-03 11:38 | Outpatient (REF) | payer MEDICARE, SELFPAY ==
--- NOTE | 2022-06-03 11:48 | ECG_ITS ---
Test Reason : preop dm Blood Pressure : / mmHG Vent. Rate : 059 BPM Atrial Rate : 059 BPM P-R Int : 156 ms QRS Dur : 088 ms QT Int : 414 ms P-R-T Axes : 088 081 085 degrees QTc Int : 409 ms Sinus bradycardia Otherwise normal ECG When compared with ECG of 30-JUL-2021 13:34, Heart rate has decreased Referred By: Jensen Manning Electronically Signed By:GRZEGORZ SARAH
[2022-06-03 11:55] LABS: MANUAL DIFF FLAG NO
[2022-06-03 12:02] LABS: Basophils Percent Auto 0.4 % (0-2); Eosinophils Absolute Auto 0.2 X10*3/uL (0.0-0.4); Hematocrit 41.6 % (42.0-52.0); Hemoglobin 14.1 g/dl (14.0-18.0); Imm Gran Abs Auto 0.02 X10*3/uL (0.00-0.03); Imm Gran Pct Auto 0.3 % (0.0-0.4); Lymphocytes Absolute Auto 1.5 X10*3/uL (1.2-4.9); Mean Corpuscular HGB Conc 33.9 g/dl (31.0-36.0); Mean Corpuscular Hemoglobin 31.1 pg (27.0-33.0); Mean Corpuscular Volume 91.6 fL (80.0-98.0); Mean Platelet Volume 9.5 fL (9.4-12.4); Monocytes Absolute Auto 0.8 X10*3/uL (0.1-1.2); Monocytes Percent Auto 9.6 % (2-11); Neutrophils Absolute Auto 5.4 x10*3/uL (2.0-8.3); Neutrophils Percent Auto 68.7 % (45-73); Platelet Count 238 X10*3/uL (160-400); Red Blood Count 4.54 X10*6/uL (4.60-5.80); Red Cell Distribution Width 13.1 % (11.0-16.0); White Blood Count 7.8 X10*3/uL (4.8-10.8)
[2022-06-03 12:08] LABS: Estimated Average Glucose 126 mg/dL
[2022-06-03 12:34] LABS: Alanine Aminotransferase 16 U/L (0-40); Albumin Level 4.1 g/dL (3.5-5.0); Alkaline Phosphatase 53 U/L (39-117); Anion Gap 13 (12-20); Aspartate Amino Transferase 16 U/L (5-37); Bilirubin Total 0.7 mg/dL (0.0-1.0); Blood Urea Nitrogen 14 mg/dL (9-16); Calcium 8.9 mg/dL (8.4-10.2); Carbon Dioxide 25 mmol/L (22-29); Chloride 105 mmol/L (96-108); Estimated Glomerular Filt Rate > 60; Glucose Random 140 mg/dL (60-115); Potassium 4.2 mmol/L (3.3-5.1); Sodium 139 mmol/L (135-145); Total Protein 6.5 g/dL (6.5-8.0)
== END 2022-06-03 11:39 | disposition home or self-care (01) ==
LOC: HO.LAB 11:38
PROVIDERS: PCP Family Medicine; Visit Provider Family Medicine
DX: Z13.89 Encounter for screening for other disorder (principal)
CPT/HCPCS: 36415; 80053; 82550; 83036; 85025; 93005

== ENCOUNTER 2022-09-19 13:22 | Outpatient (REF) | payer MEDICARE, SELFPAY ==
[2022-09-19 17:39] LABS: Prostate Specific Antigen 5.09 ng/mL (<0.05-4.0)
== END 2022-09-19 13:23 | disposition home or self-care (01) ==
LOC: HO.HMGCLDS 13:22
PROVIDERS: PCP Family Medicine; Visit Provider Physician Assistant
DX: Z12.5 Encounter for screening for malignant neoplasm of prostate (principal); C61 Malignant neoplasm of prostate
CPT/HCPCS: 36415; 84153

== ENCOUNTER 2022-11-28 10:17 | Outpatient (REF) | payer MEDICARE, SELFPAY ==
[2022-11-28 12:09] LABS: Creatinine Urine 72.03 mg/dL; Microalbum/Creatinine Ratio Ur 113.8 ug/mg cr
[2022-11-28 12:13] LABS: Alanine Aminotransferase 17 U/L (0-40); Anion Gap 11 (12-20); Aspartate Amino Transferase 15 U/L (5-37); Blood Urea Nitrogen 16 mg/dL (9-16); Carbon Dioxide 28 mmol/L (22-29); Chloride 106 mmol/L (96-108); Estimated Glomerular Filt Rate > 60; Glucose Fasting 162 mg/dL (60-99); Potassium 4.2 mmol/L (3.3-5.1); Sodium 141 mmol/L (135-145)
[2022-11-28 12:35] LABS: Estimated Average Glucose 137 mg/dL; Hemoglobin A1c % 6.4 %
== END 2022-11-28 10:18 | disposition home or self-care (01) ==
LOC: HO.HMGCLDS 10:17
PROVIDERS: PCP Family Medicine; Visit Provider Family Medicine
DX: I10 Essential (primary) hypertension (principal); E11.9 Type 2 diabetes mellitus without complications; E78.00 Pure hypercholesterolemia, unspecified; Z79.899 Other long term (current) drug therapy
CPT/HCPCS: 36415; 80051; 82043; 82550; 82565; 82947; 83036; 84450; 84460; 84520

== ENCOUNTER → 2023-01-24 15:24 | Outpatient (BNVA) | payer MEDICARE, SELFPAY | PROVIDERS: PCP Family Medicine; Visit Provider Physician Assistant | DX: G95.9 Disease of spinal cord, unspecified (principal) | CPT/HCPCS: 99212 ==

== ENCOUNTER 2023-03-20 14:02 | Outpatient (REF) | payer MEDICARE, SELFPAY ==
[2023-03-20 17:28] LABS: Prostate Specific Antigen 5.56 ng/mL (<0.05-4.0)
== END 2023-03-20 14:03 | disposition home or self-care (01) ==
LOC: HO.HMGCLDS 14:02
PROVIDERS: Visit Provider Nurse Practitioner Family
DX: Z12.5 Encounter for screening for malignant neoplasm of prostate (principal); C61 Malignant neoplasm of prostate
CPT/HCPCS: 36415; 84153

== ENCOUNTER 2023-05-31 10:34 | Outpatient (REF) | payer MEDICARE, SELFPAY ==
[2023-05-31 13:44] LABS: Estimated Average Glucose 140 mg/dL; Hemoglobin A1c % 6.5 % (<6.0)
[2023-05-31 14:27] LABS: Alanine Aminotransferase 18 U/L (0-40); Anion Gap 12 (12-20); Aspartate Amino Transferase 16 U/L (5-37); Blood Urea Nitrogen 13 mg/dL (9-16); Carbon Dioxide 25 mmol/L (22-29); Chloride 106 mmol/L (96-108); Estimated Glomerular Filt Rate > 60; Glucose Fasting 149 mg/dL (60-99); Potassium 4.2 mmol/L (3.3-5.1); Sodium 139 mmol/L (135-145)
== END 2023-05-31 10:35 | disposition home or self-care (01) ==
LOC: HO.HMGCLDS 10:34
PROVIDERS: PCP Family Medicine; Visit Provider Family Medicine
DX: I10 Essential (primary) hypertension (principal); E78.00 Pure hypercholesterolemia, unspecified; E11.9 Type 2 diabetes mellitus without complications; Z79.899 Other long term (current) drug therapy
CPT/HCPCS: 36415; 80051; 82550; 82565; 82947; 83036; 84450; 84460; 84520

== ENCOUNTER 2023-11-01 13:20 | Outpatient (REF) | payer MEDICARE, SELFPAY ==
[2023-11-01 16:46] LABS: Prostate Specific Antigen 4.59 ng/mL (<0.05-4.0)
== END 2023-11-01 13:21 | disposition home or self-care (01) ==
LOC: HO.HMGCLDS 13:20
PROVIDERS: PCP Family Medicine; Visit Provider Urology
DX: C61 Malignant neoplasm of prostate (principal); Z12.5 Encounter for screening for malignant neoplasm of prostate
CPT/HCPCS: 36415; 84153

== ENCOUNTER 2023-12-27 10:55 | Outpatient (REF) | payer MEDICARE, SELFPAY ==
[2023-12-27 13:56] LABS: Alanine Aminotransferase 17 U/L (0-40); Anion Gap 11 (12-20); Aspartate Amino Transferase 14 U/L (5-37); Blood Urea Nitrogen 12 mg/dL (9-16); Carbon Dioxide 28 mmol/L (22-29); Chloride 105 mmol/L (96-108); Estimated Glomerular Filt Rate > 60; Glucose Fasting 168 mg/dL (60-99); Potassium 4.1 mmol/L (3.3-5.1); Sodium 140 mmol/L (135-145)
[2023-12-27 13:59] LABS: Estimated Average Glucose 157 mg/dL; Hemoglobin A1c % 7.1 % (<6.0)
[2023-12-27 14:10] LABS: Creatinine Urine 119.82 mg/dL
== END 2023-12-27 10:56 | disposition home or self-care (01) ==
LOC: HO.HMGCLDS 10:55
PROVIDERS: PCP Family Medicine; Visit Provider Family Medicine
DX: I10 Essential (primary) hypertension (principal); E78.00 Pure hypercholesterolemia, unspecified; E11.9 Type 2 diabetes mellitus without complications; Z79.899 Other long term (current) drug therapy
CPT/HCPCS: 36415; 80051; 82043; 82550; 82565; 82570; 82947; 83036; 84450; 84460; 84520

== ENCOUNTER 2024-05-16 10:14 | Outpatient (REF) | payer MEDICARE, SELFPAY ==
[2024-05-17 10:38] LABS: Free Prostate Spec Ag 1.7 ng/mL; Percent Free Prostate Spec Ag 32 % (calc) (>25); Prostate Specific Ag Total 5.3 ng/mL (< OR = 4.0)
== END 2024-05-16 10:15 | disposition home or self-care (01) ==
LOC: HO.HMGCLDS 10:14
PROVIDERS: PCP Family Medicine; Visit Provider Physician Assistant
DX: C61 Malignant neoplasm of prostate (principal)
CPT/HCPCS: 36415; 84154

== ENCOUNTER 2024-07-01 10:05 | Outpatient (REF) | payer MEDICARE, SELFPAY ==
[2024-07-01 13:39] LABS: Estimated Average Glucose 148 mg/dL; Hemoglobin A1c % 6.8 % (<6.0); Total Hemoglobin (HGBA1C) 3555.3747 umol/L
[2024-07-01 13:49] LABS: Alanine Aminotransferase 14 U/L (0-40); Anion Gap 13 (12-20); Aspartate Amino Transferase 14 U/L (5-37); Blood Urea Nitrogen 14 mg/dL (9-16); Carbon Dioxide 28 mmol/L (22-29); Chloride 104 mmol/L (96-108); Estimated Glomerular Filt Rate > 60; Glucose Fasting 161 mg/dL (60-99); Potassium 4.1 mmol/L (3.3-5.1); Sodium 141 mmol/L (135-145)
== END 2024-07-01 10:06 | disposition home or self-care (01) ==
LOC: HO.HMGCLDS 10:05
PROVIDERS: PCP Family Medicine; Visit Provider Family Medicine
DX: I10 Essential (primary) hypertension (principal); E78.00 Pure hypercholesterolemia, unspecified; E11.9 Type 2 diabetes mellitus without complications; Z79.899 Other long term (current) drug therapy; R25.1 Tremor, unspecified
CPT/HCPCS: 36415; 80051; 82550; 82565; 82947; 83036; 84450; 84460; 84520

== ENCOUNTER 2025-02-27 11:48 | Outpatient (REF) | payer MEDICARE, SELFPAY ==
[2025-02-27 13:57] LABS: Estimated Average Glucose 151 mg/dL; Hemoglobin A1c % 6.9 % (<6.0)
[2025-02-27 14:18] LABS: Creatinine Urine 88.71 mg/dL; Microalbum/Creatinine Ratio Ur 69.8 ug/mg cr (<30)
[2025-02-27 14:20] LABS: Alanine Aminotransferase 18 U/L (0-40); Anion Gap 9 (12-20); Aspartate Amino Transferase 20 U/L (5-37); Blood Urea Nitrogen 13 mg/dL (9-16); Carbon Dioxide 31 mmol/L (22-29); Chloride 103 mmol/L (96-108); Cholesterol 125 mg/dL (<200); Estimated Glomerular Filt Rate > 60; Glucose Fasting 145 mg/dL (60-99); HDL Cholesterol 41 mg/dL (>40); LDL Cholesterol Calculated 58 mg/dL (<100); Potassium 3.8 mmol/L (3.3-5.1); Sodium 139 mmol/L (135-145); Triglycerides 132 mg/dL (<150)
== END 2025-02-27 11:49 | disposition home or self-care (01) ==
LOC: HO.HMGCLDS 11:48
PROVIDERS: PCP Family Medicine; Visit Provider Family Medicine
DX: E11.9 Type 2 diabetes mellitus without complications (principal); I10 Essential (primary) hypertension; E78.00 Pure hypercholesterolemia, unspecified; Z79.899 Other long term (current) drug therapy
CPT/HCPCS: 36415; 80051; 80061; 82043; 82550; 82565; 82570; 82947; 83036; 84450; 84460; 84520

== ENCOUNTER 2025-05-15 10:31 | Outpatient (REF) | payer MEDICARE, SELFPAY ==
[2025-05-15 14:02] LABS: Prostate Specific Antigen 6.00 ng/mL (<0.05-4.0)
== END 2025-05-15 10:32 | disposition home or self-care (01) ==
LOC: HO.HMGCLDS 10:31
PROVIDERS: Visit Provider Urology
DX: C61 Malignant neoplasm of prostate (principal); Z12.5 Encounter for screening for malignant neoplasm of prostate
CPT/HCPCS: 36415; 84153